=== PATIENT | male | born 1940 | race Caucasian/White ===

== ENCOUNTER 2025-01-28 15:57 | Emergency (ER) | payer OTHER ==
[~2025-01-28] VITALS: Ht 172.7 cm; Wt 75.0 kg
--- NOTE | 2025-01-28 17:00 | ED.PDOC ---
Shannon. trauma (HPI) HPI Comments 84 y/o M, CARL, presents to the ED for CC of s/p mechanical fall. EMS reports, patient had a trip and fall while ambulating into a furniture store resulting in him hitting his head against the concert curb. Following trauma, patient c/o pain to his right-knee and right-elbow. Patient has a visible laceration to his forehead, which has since been wrapped; at this time bleeding is controlled. Patient denies nausea, vomiting, headache, or LOC. No other symptoms or modifying factors present at this time. Vitals: Temperature of 97.8 F, pulse rate of 86, respiratory 16, blood pressure 166/70, and pulse ox of 96% on room air SHECKLES: CLOSED HEAD INJURY, mechanical FALL FROM A STANDING POSITION BLOOD THINNERS, NO LOSS OF CONSCIOUSNESS NO NECK PAIN NO OTHER COMPLAINTS. HPI: Poor Historian. Past medical history: [place], hypertension, prostate cancer Past surgical history: Tonsillectomy REVIEW OF SYSTEMS: CONSTITUTIONAL: Denies acute: fever, diaphoresis, chills, generalized weakness. HEAD: Denies acute: headache, photophobia Eyes: Denies acute: Double vision, vision loss, eye pain, eye discharge. EARS: Denies acute: tinnitus, hearing loss, ear discharge, ear pain, THROAT: Denies acute: sore throat, swelling, difficulty swallowing , pain with swallowing, change in voice. NECK: Denies acute: neck pain, neck swelling, stiff neck. HEART: Denies acute : chest pain, palpitations, LUNGS: Denies acute: SOB, wheezing, cough, hemoptysis ABDOMEN: Denies acute: abdominal pain, Nausea, Vomiting, diarrhea, melena , hematemesis, hematochezia SKIN: Denies acute: rash, redness, lesions, itchiness. EXTREMITIES: Denies acute: calf pain, numbness, tingling, weakness, denies pain in extremity. Denies acute: Low back pain. Neuro: Denies acute: focal neurological deficit, motor or sensory focal neurological deficit, tremors, seizure like activity, confusion, dizziness, change in mental status, loss of bowel or bladder function, cauda equina like symptoms. : Denies acute: dysuria, hematuria, flank pain, increase in urinary frequency. PSYCH: Denies acute: hallucination, suicidal ideation, homicidal ideation. PHYSICAL EXAM: General: ----no----acute distress, awake and alert. Head: normocephalic, noted forehead laceration with wound dressing in place. I unwrapped it to evaluated and wrapped it back up again until we get a CT scan of the head then will repair the laceration.. Neck: supple, trachea is midline, no swelling. Cervical spine: Palpation of the posterior midline of the cervical spine reveals no focal swelling, erythema, focal tenderness to palpation. Patient has normal range of motion. Throat: Normal phonation. Eyes:, no erythema, no purulent discharge, no proptosis, no icterus. Heart: regular rate, regular rhythm, no significant murmur appreciated. Lungs: no apparent respiratory distress, Able to speak in full sentences. No wheezing, no rhonchi, no crackles. No stridors Clear to auscultation bilaterally. Abdomen: non tender to palpation, non distended, soft, no guarding, no rebound, + bowel sounds. Neuro: Awake, Alert, oriented to name, self, situation, follows commands GCS=15. Speech is normal. Skin: no petechia, no purpura, no cyanosis, non-pale, not jaundice. Lower extremities: --no - Pitting edema no deformity, no focal swelling, no calf TTP. Able to flex and extend right hip and knee. Makes eye contact. moves all four extremities. Face: no apparent facial droop. Ears: Normal appearing TM b/l, Stroke: finger to nose cerebellar testing is intact. No pronator drift. 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 ED COURSE: [facility] has been taking inappropriate length of time to arrange for transfer this patient. I spoke with them multiple times. The receiving hospitalist insist that the patient's blood pressure be below 160s systolic before they make the transfer. They are also not authorized us to keep the patient here in the ED. we have given the patient multiple blood pressure medications and his blood pressure continues to be in the 160s without any o ther symptoms. This has contributed to and increased length of stay and delay of patient's care.. DISCLAIMER: This medical document was created using an electronic medical record system with voice recognition software and computerized dictation system. Although this document has been carefully reviewed, there might still be some phonetic and typographical errors. Occasional wrong-word or "sound-alike" substitutions may have occurred due to the inherent limitations of voice recognition software. These areas are purely typographical due to imperfections of the software programs and do not reflect any compromise in the patient's medical care. Please read the chart carefully and recognize, using context, where these substitutions have occurred. Chief Complaint: Fall Injury Time Seen by MD: 16:20 Primary Care Provider: TED Reviewed notes: Nurses Notes, Technical Maintenance Specialist Notes, Medications, Allergies Allergies: Coded Allergies: NO KNOWN ALLERGIES (Unverified , 01/28/25) Information Source: Patient, Emergency Med Personnel Mode of Arrival: EMS Severity: Moderate Timing: Minutes Duration: Since onset Prehospital treatment: None Location: (R) Elbow, Head Location of laceration: Head Mechanism: Fall Associated signs and symtoms: None Differential Diagnosis Multiple Trauma: Closed Head Injury, Cardiac Injury, Fractures, Intraabdominal Injury, Pneumothorax, Cerebral Contusion, Pulmonary Contusion, Spine Injury, Tracheal Injury, Urological Injury, Vascular Injury, Abrasions, Contusion, Foreign Body, Hematoma, Laceration, Encephalopathy Neck Injury: Cervical Muscle Spasm, Cervical Sprain, Cervical Strain, Cervical Fracture, Spinal Cord Injury X-Ray, Labs, Meds, VS Vital Signs Date Time Temp Pulse Resp B/P (MAP) Pulse Ox O2 Delivery O2 Flow Rate FiO2 01/29/25 03:35 63 107/64 01/29/25 03:32 97.9 63 16 107/64 (78) 98 97.9 01/29/25 02:17 98.5 60 16 141/61 (87) 97 98.5 01/29/25 01:54 70 173/80 01/29/25 01:42 70 18 94 Room Air* 0 21 21 01/29/25 00:00 168/70 (102) 01/28/25 23:41 184/70 (108) 01/28/25 23:15 187/70 01/28/25 23:15 187/70 01/28/25 22:24 187/71 01/28/25 22:21 98.5 62 16 187/ (109) 100 98.5 01/28/25 19:00 98.7 65 16 177/67 (103) 97 98.7 01/28/25 19:00 65 18 97 Room Air 01/28/25 16:08 97.8 86 16 166/70 (102) 96 97.8 Lab Test 01/28/25 23:55 01/28/25 16:43 Range/Units Urine Color Light-yellow Yellow Urine Clarity Clear Clear Urine pH 6.5 5.0-9.0 Urine Specific [place] 1.013 1.001-1.035 Urine Protein 2+ H Negative Urine Ketones Negative Negative Urine Blood Trace H Negative /uL Urine Nitrite Negative Negative Urine Bilirubin Negative Negative Urine Urobilinogen Normal Negative mg/dL Urine Leukocyte Esterase Negative Negative /uL Urine RBC 1 0 - 3 /hpf Urine Microscopic WBC 2 0-3 /HPF Urine Squamous Epithelial Cells Few <5 /hpf Urine Bacteria None seen None Seen /hpf Urine Glucose Trace Normal mg/dL White Blood Count 6.3 4.4-10.8 10^3/uL Red Blood Count 2.59 L 4.5-5.90 10^6/uL Hemoglobin 8.8 L 13.5-17.5 g/dL Hematocrit 25.6 L 41.0-53.0 % Mean Corpuscular Volume 98.6 80.0-100.0 fL Mean Corpuscular Hemoglobin 34.0 H 28.0-32.0 pg Mean Corpuscular Hemoglobin Concent 34.5 32.0-36.0 g/dL Red Cell Distribution Width 14.3 11.8-14.3 % Platelet Count 276 140-450 10^3/uL Mean Platelet Volume 8.0 6.9-10.8 fL Neutrophils (%) (Auto) 58.7 37.0-80.0 % Lymphocytes (%) (Auto) 14.8 10.0-50.0 % Monocytes (%) (Auto) 11.5 0.0-12.0 % Eosinophils (%) (Auto) 14.1 H 0.0-7.0 % Basophils (%) (Auto) 0.9 0.0-2.0 % Neutrophils # (Auto) 3.7 1.6-8.6 10 ^3/uL Lymphocytes # (Auto) 0.9 0.4-5.4 10 ^3/uL Monocytes # (Auto) 0.7 0-1.3 10 ^3/uL Eosinophils # (Auto) 0.9 H 0-0.8 10 ^3/uL Basophils # (Auto) 0.1 0-0.2 10 ^3/uL Nucleated Red Blood Cells 0.0 % Sodium Level 144 136-145 mmol/L Potassium Level 4.8 3.5-5.1 mmol/L Chloride Level 110 H 98-107 mmol/L Carbon Dioxide Level 21 20-31 mmol/L Anion Gap 13 5-15 Blood Urea Nitrogen 87 *H 9-23 mg/dL Creatinine 5.30 H 0.700-1.30 mg/dL Glomerular Filtration Rate Calc 10 >90 mL/min BUN/Creatinine Ratio 16.4 10.0-20.0 Serum Glucose 127 H 74-106 mg/dL Calcium Level 9.5 8.7-10.4 mg/dL [place] [address] Ph: [phone] DIAGNOSTIC IMAGING Diagnostic Imaging Report : [id number] Signed PATIENT: JOSE NEFF ACCT: [id number] UNIT: [id number] : 1940 LOC: ER ROOM / BED: / AGE / SEX: 84 / M ADM STATUS: REG ER SERVICE 1610 ORDERING PHYSICIAN: NUVIA LESLIE DO PROCEDURE(s): HWOCT - HEAD WITHOUT CONTRAST REASON: fall, head injury ORDER NUMBER(s): [id number], ACCESSION NUMBER(s): [id number] EXAM: CT HEAD WITHOUT CONTRAST INDICATION: fall, head injury TECHNIQUE: CT of the head without intravenous contrast. Radiation Dose : 1. Head: CT Dose: CTDI volume is 63.55 mGy. Dose-length product is 1125.1 mGy*cm The dose indicators for CT are the volume Computed Tomography (CT) Dose Index (CTDIvol) and the Dose Length Product (DLP), and are measured in units of mGy and mGy-cm, respectively. These indicators are not patient dose, but values generated from the CT scanner acquisition factors. The report includes radiation exposure data for exposures received during this examination. COMPARISON: None FINDINGS: There is no evidence of acute intracranial hemorrhage, extra-axial collection, mass effect, midline shift, herniation or hydrocephalus. The ventricles, sulci and cisterns are age appropriate. The gotti-white differentiation is intact. Patchy periventricular and subcortical white matter hypoattenuation is nonspecific but may be related to small vessel ischemic disease. The visualized paranasal sinuses and mastoid air cells are clear. Superficial hematoma seen in the right frontal scalp. IMPRESSION: 1. No acute intracranial abnormality. Radiation optimization: All CT scans at this facility use at least one of these dose optimization techniques: automated exposure control mA and/or kV adj ustment per patient size (includes targeted exams where dose is matched to clinical indication) or iterative reconstruction. ATED BY: DINESH MARQUEZ MD DICTATED DATE/TIME: 01/28/251728 SIGNED BY: DINESH MARQUEZ MD SIGNED DATE/TIME: 01/28/251728 CC: [place] [id number] Ph: [phone] DIAGNOSTIC IMAGING Diagnostic Imaging Report : [id number] Signed PATIENT: JOSE NEFF ACCT: [id number] UNIT: [id number] : 1940 LOC: ER ROOM / BED: / AGE / SEX: 84 / M ADM STATUS: REG ER SERVICE 03 ORDERING PHYSICIAN: NUVIA LESLIE DO PROCEDURE(s): CX2CT - CHEST WITHOUT CONTRAST REASON: Fall/trauma-back and shoulder pain ORDER NUMBER(s): [id number], ACCESSION NUMBER(s): [id number] EXAM: CT CHEST WITHOUT CONTRAST History: Fall/trauma-back and shoulder pain Comparison Study: None TECHNIQUE: Multidetector CT of the chest was performed. Imaging was performed without IV contrast. Axial, coronal, and sagittal multiplanar reformats were obtained from the axial data set by the technologist. Radiation Dose : CTDI vol 11.93 mGy, DLP 457.49 mGy*cm. Findings: Evaluation is degraded by respiratory motion. Lungs: There is minimal atelectasis/ scarring. Pleura: Unremarkable. Heart/Great vessels: There is mild cardiomegaly. Trace pericardial effusion. Severe coronary artery calcification versus stents. 4.1 cm ascending aortic aneurysm. Mild atherosclerotic calcifications of the aorta. Mediastinum: Unremarkable. Soft tissues/Bones: No acute fracture. Thoracic DISH. Upper abdomen: The partially visualized upper abdomen is within normal limits. Impression: 1. No acute traumatic abnormality identified. 2. 4.1 cm ascending aortic aneurysm. 3. Additional findings as detailed. ATED BY: WERNER TIERNEY MD DICTATED DATE/TIME: 01/28/252302 SIGNED BY: WERNER TIERNEY MD SIGNED DATE/TIME: 01/28/252302 CC: Time of 1ST Reevaluation: 16:50 Reevaluation 1ST: Unchanged Time of 2ND Reevaluation: 18:38 (The case was discussed with the [facility] admitting team (HPI, physical exam, labs and diagnostic tests that were avail able at the time of disposition, ED course, treatment plan) on the phone. They agreed to transfer the patient to their service by [facility] for further evaluation and treatment. Dr. Wilhelm. Authorization number [id number] [id number] [phone] [id number]) Time of 3RD Reevaluation: 21:33 (Spoke with [facility] again. It is still pending transfer. The [facility] hospitalist requesting to give blood pressure control medicine prior to patient leaving our ED.) Patient Education/Counseling: Diagnosis, Treatment Family Education/Counseling: No Family Present Comments Patient presented with the above HPI.--closed head injury----workup was initiated. patient was found with the above mentioned diagnosis. the following medications were ordered: please refer to order lists of meds and tests obtained by myself Dr. Leslie. Patient ED course and VS have been stabilized. Patient has been reassessed in the ED and remained in a stable condition. Pertinent incidental findings were discussed with the patient and/or family. Patient/family voices understanding and is agreeable with plan. Patient has been observed in the ED adequate length of time to insure improvement/stability. Escalation of care considered: Consideration of escalation to observation or admission Patient was hypertensive. Patient required multiple indication boluses for b lood pressure control. Patient was transferred to [facility] per insurance requirement for further evaluation and treatment of their presentation. All the reports of any imaging studies that were ordered by myself were reviewed by myself. Departure 1 Departure Time of Disposition: 17:56 Impression: Primary Impression: Closed head injury Additional Impressions: Forehead laceration Acute renal failure Anemia Ascending aortic aneurysm Hypertensive crisis Disposition: ADMITTED INPATIENT Admit to: Tele Condition: Guarded Discharged With: Self Critical Care Note Critical Care Time?: Yes (1 hr-critical care time only) Heart Score Heart Score: Heart Score Response (Comments) Value History Slightly Suspicious 0 EKG Normal 0 Age >65 2 Risk Factors 1 or 2 risk factors 1 Troponin Normal limit 0 Total 3 Was a procedure done? Was a procedure done?: Yes Sedation Sedation?: No Laceration Repair : Location Forehead Length 6cm Anesthetic: Lidocaine (1%), With epi, Other (7 ccs used) Laceration Repair Prep: Saline, Manual Scrub Laceration Repair Wound Comple: subcut tissue repair Laceration Repair: Number of sutures (8), SQ, Size (4-0 ethilon) Informed consent obtained: Yes Risks, benefits, and alternati: Yes Notes 6cm forehead laceration irrigated with normal saline and 7cc's of 1% lidocaine with epi was administered. 8, 4-0 Ethilon sutures applied with good skin approximation. No complications noted and patient tolerated procedure well. Wound care instructions given to the patient and suture site wrapped with sterile dressing. I personally scribed for NUVIA LESLIE DO ([email or web address]) on 01/28/25 at 17:00. Electronically submitted by Jyothi Monk ([email or web address]). I personally scribed for NUVIA LESLIE DO ([email or web address]) on 01/28/25 at 17:03. Electronically submitted by Jyothi Monk ([email or web address]). I personally scribed for NUVIA LESLIE DO ([email or web address]) on 01/28/25 at 18:03. Electronically submitted by Jyothi Monk ([email or web address]). I personally scribed for NUVIA LESLIE DO ([email or web address]) on 01/28/25 at 21:25. Electronically submitted by Eric Zhang ([email or web address]). I personally scribed for NUVIA LESLIE DO ([email or web address]) on 01/29/25 at 00:04. Electronically submitted by Marito Pal ([email or web address]). NUVIA LESLIE DO Jan 28, 2025 17:00
[2025-01-28 17:04] LABS: Hematocrit 25.6 % (41.0-53.0); Hemoglobin 8.8 g/dL (13.5-17.5); Mean Corpuscular Hemoglobin 34.0 pg (28.0-32.0); Mean Corpuscular Volume 98.6 fL (80.0-100.0); Nucleated Red Blood Cells % 0.0 %
[2025-01-28 17:11] LABS: Potassium 4.8 mmol/L (3.5-5.1); Sodium 144 mmol/L (136-145)
[2025-01-28 17:12] LABS: Anion Gap 13 (5-15); Carbon Dioxide 21 mmol/L (20-31)
[2025-01-28 17:13] LABS: Calcium 9.5 mg/dL (8.7-10.4); Chloride 110 mmol/L (98-107)
[2025-01-28 17:17] LABS: BUN/Creatinine Ratio 16.4 (10.0-20.0)
[2025-01-28 17:24] LABS: Glucose 127 mg/dL (74-106)
--- NOTE | 2025-01-28 17:32 | DVH ---
EXAM: CT HEAD WITHOUT CONTRAST INDICATION: fall, head injury TECHNIQUE: CT of the head without intravenous contrast. Radiation Dose : 1. Head: CT Dose: CTDI volume is 63.55 mGy. Dose-length product is 1125.1 mGy*cm The dose indicators for CT are the volume Computed Tomography (CT) Dose Index (CTDIvol) and the Dose Length Product (DLP), and are measured in units of mGy and mGy-cm, respectively. These indicators are not patient dose, but values generated from the CT scanner acquisition factors. The report includes radiation exposure data for exposures received during this examination. COMPARISON: None FINDINGS: There is no evidence of acute intracranial hemorrhage, extra-axial collection, mass effect, midline s hift, herniation or hydrocephalus. The ventricles, sulci and cisterns are age appropriate. The gotti-white differentiation is intact. Patchy periventricular and subcortical white matter hypoattenuation is nonspecific but may be related to small vessel ischemic disease. The visualized paranasal sinuses and mastoid air cells are clear. Superficial hematoma seen in the right frontal scalp. IMPRESSION: 1. No acute intracranial abnormality. Radiation optimization: All CT scans at this facility use at least one of these dose optimization torrie hniques: automated exposure control mA and/or kV adjustment per patient size (includes targeted exam s where dose is matched to clinical indication) or iterative reconstruction.
[2025-01-28 17:33] LABS: Blood Urea Nitrogen 87 mg/dL (9-23)
[2025-01-28] MEDS: hydrALAZINE HCL 20 MG/ML VL IV ONE ×2 (22:24→23:15)
[2025-01-28] MEDS: SODIUM CHLORIDE 0.9% 1,000 ML IV ONE (22:25)
--- NOTE | 2025-01-28 23:06 | DVH ---
EXAM: CT CHEST WITHOUT CONTRAST History: Fall/trauma-back and shoulder pain Comparison Study: None TECHNIQUE: Multidetector CT of the chest was performed. Imaging was performed without IV contrast. Ax ial, coronal, and sagittal multiplanar reformats were obtained from the axial data set by the technol jovanni. Radiation Dose : CTDI vol 11.93 mGy, DLP 457.49 mGy*cm. Findings: Evaluation is degraded by respiratory motion. Lungs: There is minimal atelectasis/ scarring. Pleura: Unremarkable. Heart/Great vessels: There is mild cardiomegaly. Trace pericardial effusion. Severe coronary artery calcification versus stents. 4.1 cm ascending aortic aneurysm. Mild atherosclerotic calcifications of the aorta. Mediastinum: Unremarkable. Soft tissues/Bones: No acute fracture. Thoracic DISH. Upper abdomen: The partially visualized upper abdomen is within normal limits. Impression: 1. No acute traumatic abnormality identified. 2. 4.1 cm ascending aortic aneurysm. 3. Additional findings as detailed.
[2025-01-28] MEDS: hydroCHLOROthiazide 25 MG TAB PO ONE (23:15)
[2025-01-29 00:16] LABS: Urine Protein, UAD 2+ (Negative)
[2025-01-29 01:42] VITALS: PULSE 70; RESP 18; O2SAT 94
[2025-01-29] MEDS: LABETALOL HCL 20 MG/4 ML VL IV ONE (01:54)
[2025-01-29] MEDS: hydrALAZINE HCL 20 MG/ML VL IV ONE (02:15)
[2025-01-29 03:32] VITALS: BP 107/64; PULSE 63; RESP 16; TEMP 97.9; O2SAT 98
== END 2025-01-29 03:40 | disposition short-term general hospital (02) ==
LOC: EDBD 15:57 → ER 16:03
DX: S01.81XA Laceration without foreign body of other part of head, initial encounter (principal); S09.90XA Unspecified injury of head, initial encounter; D64.9 Anemia, unspecified; N17.9 Acute kidney failure, unspecified; I71.21 Aneurysm of the ascending aorta, without rupture; I10 Essential (primary) hypertension; Z90.89 Acquired absence of other organs; W01.0XXA Fall on same level from slipping, tripping and stumbling without subsequent striking against object, initial encounter; Y93.89 Activity, other specified; Y92.89 Other specified places as the place of occurrence of the external cause; Y99.8 Other external cause status
CPT/HCPCS: 12014; 36415; 70450; 71250; 80048; 81001; 85025; 96361; 96374; 96375; 96376; 99291; J0360; J2003; J7030